=== PATIENT | female | born 1985 | race Caucasian/White ===

== ENCOUNTER → 2017-04-15 | Day surgery (SDC) | payer OTHER ==
[~2017-04-15] VITALS: Ht 170.2 cm; Wt 88.5 kg
[~2017-04-15] MED LIST: EFFEXOR XR150 M1 PO; IBUPROFEN800 M1 PO; IBUPROFEN800 MG PO; PERCOCET 5-3251 EACH PO; PRENATAL1 TA2 PO; SLOW FE45 MG PO
== END ==
LOC: STS 02:03
DX: N87.1 Moderate cervical dysplasia (principal); Z87.891 Personal history of nicotine dependence
CPT/HCPCS: 81025; 88305; 88307; J0131; J2250